=== PATIENT | female | born 1995 | race Caucasian/White ===

== ENCOUNTER → 2021-05-13 | Outpatient (CLI) | payer OTHER ==
[~2021-05-13] MED LIST: CETIRIZINE HCL10 MG PO; COLACE 100MG C100 MG PO; DOXYCYCLINE MON50 M1 PO; ESTARYLLA 0.251 EACH PO; FLUTICASONE SPRAY; HYDROCODON-ACE1 EAC4 PO; IBUPROFEN600 MG PO; IRON OTC PO; LEVOTHYROXINE25 MC1 PO; LOPRESSOR50 MG PO; PROBIOTIC1 EACH PO; RETIN A 0.05% TOP
[2021-05-13 12:12] LABS: HEMOGLOBIN 14.4 gm/dl (12.3-15.3); RED BLOOD COUNT 4.33 M/UL (4.00-5.10); WHITE BLOOD COUNT 6.6 K/UL (4.5-11.0)
[2021-05-13 12:36] LABS: BUN/CREATININE RATIO 16 (0-10)
== END ==
LOC: OPSV2 10:30
PROVIDERS: Obstetrics & Gynecology
DX: Z01.812 Encounter for preprocedural laboratory examination (principal); N93.9 Abnormal uterine and vaginal bleeding, unspecified; Z88.0 Allergy status to penicillin
CPT/HCPCS: 36415; 80053; 81001; 85025

== ENCOUNTER 2021-05-14 23:48 | Emergency (ER) | payer OTHER ==
[~2021-05-14 23:48] MED LIST changes: -HYDROCODON-ACE1 EAC4 PO; -IBUPROFEN600 MG PO
[2021-05-15 01:33] LABS: HEMOGLOBIN 14.1 gm/dl (12.3-15.3); RED BLOOD COUNT 4.26 M/UL (4.00-5.10)
[2021-05-15 01:37] LABS: WHITE BLOOD COUNT 8.6 K/UL (4.5-11.0)
[2021-05-15 01:48] LABS: BUN/CREATININE RATIO 15 (0-10)
[2021-05-16] MEDS ORDERED: HYDROCODON-ACE1 EAC4 PO (10:49)
[2021-05-16] MEDS ORDERED: IBUPROFEN600 MG PO (10:49)
== END 2021-05-15 02:45 | disposition home or self-care (01) ==
LOC: ER1 23:48
PROVIDERS: Family Medicine
DX: N93.9 Abnormal uterine and vaginal bleeding, unspecified (principal); Z88.0 Allergy status to penicillin
CPT/HCPCS: 80053; 84703; 85025; 99284

== ENCOUNTER → 2021-05-16 | Day surgery (SDC) | payer OTHER ==
[~2021-05-16] MED LIST changes: +HYDROCODON-ACE1 EAC4 PO; +IBUPROFEN600 MG PO
== END | disposition home or self-care (01) ==
LOC: OR 07:27
DX: N84.0 Polyp of corpus uteri (principal); N93.9 Abnormal uterine and vaginal bleeding, unspecified; I10 Essential (primary) hypertension; G43.909 Migraine, unspecified, not intractable, without status migrainosus; E03.9 Hypothyroidism, unspecified; Q24.6 Congenital heart block; E78.5 Hyperlipidemia, unspecified; K21.9 Gastro-esophageal reflux disease without esophagitis; Z88.0 Allergy status to penicillin; F41.9 Anxiety disorder, unspecified; F32.9 Major depressive disorder, single episode, unspecified; I34.1 Nonrheumatic mitral (valve) prolapse
CPT/HCPCS: 36415; 84702; J1885; J2250; J2704; J2795; J3010; J7120

== ENCOUNTER 2021-07-18 10:22 | Emergency (ER) | payer OTHER | END 2021-07-18 13:36 | disposition left against medical advice (07) | LOC: ER1 10:22 | DX: Z53.21 Procedure and treatment not carried out due to patient leaving prior to being seen by health care provider (principal) ==

== ENCOUNTER 2021-09-07 08:42 | Emergency (ER) | payer OTHER ==
[2021-09-07] MEDS ORDERED: OMNICEF 300 MG300 MG PO (10:25)
[2021-09-07] MEDS ORDERED: MEDROL4 MG PO (10:26)
[2021-09-07] MEDS ORDERED: MACROBID 100 M100 MG PO (10:41)
== END 2021-09-07 10:50 | disposition home or self-care (01) ==
LOC: ER1 08:42
DX: M51.26 Other intervertebral disc displacement, lumbar region (principal); E03.9 Hypothyroidism, unspecified
CPT/HCPCS: 72131; 81001; 84703; 87086; 96372; 99284; J2270

== ENCOUNTER 2021-09-09 12:51 | Inpatient (IN) | payer OTHER ==
[~2021-09-09] VITALS: Ht 175.3 cm; Wt 108.9 kg
[~2021-09-09 12:51] MED LIST changes: +MACROBID 100 M100 MG PO; +MEDROL4 MG PO; +OMNICEF 300 MG300 MG PO
[2021-09-09 14:40] LABS: HEMOGLOBIN 13.5 gm/dl (12.3-15.3); RED BLOOD COUNT 4.1 M/UL (4.00-5.10); WHITE BLOOD COUNT 12.5 K/UL (4.5-11.0)
[2021-09-09 15:03] LABS: BUN/CREATININE RATIO 23 (0-10)
[2021-09-09] MEDS ORDERED: CYCLOBENZAPRINE10 MG PO (15:48)
[2021-09-10 08:07] LABS: HEMOGLOBIN 13.2 gm/dl (12.3-15.3); RED BLOOD COUNT 4.04 M/UL (4.00-5.10); WHITE BLOOD COUNT 10.5 K/UL (4.5-11.0)
[2021-09-10 08:37] LABS: BUN/CREATININE RATIO 23 (0-10)
[2021-09-11 06:25] LABS: HEMOGLOBIN 11.7 gm/dl (12.3-15.3); RED BLOOD COUNT 3.69 M/UL (4.00-5.10)
[2021-09-11 06:53] LABS: BUN/CREATININE RATIO 21 (0-10)
--- NOTE | 2021-09-11 17:02 | NUR ---
PATIENT REQUESTING HOME PRESCRIPTION FOR PAIN MEDICATION. UPON DISCHARGE, ATTEMPTED TO CONTACT DR. KEENAN. NO ANSWER, LEFT VOICEMAIL. PATIENT DECIDED SHE WANTED TO LEAVE ANYWAY. EXPLAINED TO PATIENT THAT THERE IS NO GUARANTEE SHE WILL BE ABLE TO GET PAIN MEDICATION WITHOUT ME BEING ABLE TO DISCUSS IT WITH DR. KEENAN FIRST. SHE VERBALIZES UNDERSTANDING OF SITUATION AND DECIDED TO LEAVE WITHOUT VERIFICATION OF PAIN MEDICATION ORDERS.
== END 2021-09-11 16:37 | disposition home or self-care (01) | DRG 519 ==
LOC: ER1 12:51 → MED SURG 4 14:38 → CDU 14:38 → MED SURG 4 16:35
PROVIDERS: Emergency Medicine; Orthopaedic Surgery; Physician Assistant; ADMIT Internal Medicine
PROC: 3E0333Z Introduction of Anti-inflammatory into Peripheral Vein, Percutaneous Approach (ICD-10-PCS; 2021-09-09)
PROC: 01NB0ZZ Release Lumbar Nerve, Open Approach (ICD-10-PCS; 2021-09-10)
PROC: 01NR0ZZ Release Sacral Nerve, Open Approach (ICD-10-PCS; 2021-09-10)
PROC: 0SB40ZZ Excision of Lumbosacral Disc, Open Approach (ICD-10-PCS; principal; 2021-09-10 10:00)
DX: M51.17 Intervertebral disc disorders with radiculopathy, lumbosacral region (principal); G00-G99 Diseases of the nervous system; Z20.822 Contact with and (suspected) exposure to COVID-19; E03.9 Hypothyroidism, unspecified; I34.1 Nonrheumatic mitral (valve) prolapse; E66.9 Obesity, unspecified; F32.A Depression, unspecified; M48.07 Spinal stenosis, lumbosacral region; Y83.8 Other surgical procedures as the cause of abnormal reaction of the patient, or of later complication, without mention of misadventure at the time of the procedure; Z88.1 Allergy status to other antibiotic agents; Z88.0 Allergy status to penicillin; Z83.3 Family history of diabetes mellitus; Z82.49 Family history of ischemic heart disease and other diseases of the circulatory system; Z68.34 Body mass index [BMI] 34.0-34.9, adult
CPT/HCPCS: 36415; 71045; 72020; 72148; 76000; 80053; 84439; 84443; 84703; 85025; 85027; 85610; 86850; 86900; 86901; 87040; 93005; 96372; 96374; 97161; 97166; 97535; 99284; J0690; J1040; J1100; J1170; J1885; J2001; J2250; J2270; J2405; J2704; J3010; J3301; J3370; J7030; J7040; J7120; U0002

== ENCOUNTER → 2022-04-09 | Outpatient (CLI) | payer OTHER ==
[~2022-04-09] MED LIST changes: +CYCLOBENZAPRINE10 MG PO
[2022-04-10 08:19] LABS: HBSAG SCREEN Negative (Negative); HEP B CORE AB, TOT Negative (Negative)
[2022-04-10 16:14] LABS: RUBELLA ANTIBODIES, IGG 1.37 index (Immune >0.99)
== END ==
LOC: LAB 13:31
PROVIDERS: Nurse Practitioner Family
DX: Z02.1 Encounter for pre-employment examination (principal)
CPT/HCPCS: 36415; 86704; 86762; 87340

== ENCOUNTER 2022-05-12 07:48 | Emergency (ER) | payer OTHER ==
[2022-05-12] MEDS ORDERED: ZOFRAN 4 MG TAB4 MG PO (09:06)
[2022-05-12] MEDS ORDERED: OMNICEF 300 MG300 MG PO (09:06)
== END 2022-05-12 09:55 | disposition home or self-care (01) ==
LOC: ER1 07:48
DX: N39.0 Urinary tract infection, site not specified (principal); I10 Essential (primary) hypertension; E78.5 Hyperlipidemia, unspecified
CPT/HCPCS: 81001; 84703; 87077; 87086; 87186; 99283